=== PATIENT | male | born 1965 | race Caucasian/White ===

== ENCOUNTER 2023-11-07 13:19 | Emergency (ER) | payer OTHER, SELFPAY ==
[2023-11-07] VITALS (8 sets, daily range): BP systolic 135–179; BP diastolic 91–140; BMI 34.8
--- NOTE | 2023-11-07 14:12 | ED.GENMED ---
History of Present Illness
General
Chief Complaint: Blood Pressure Problem
Source: patient
Exam Limitations: none
Time Seen by Provider: 11/07/23 14:00
Nursing documentation reviewed up to this point in time: agreed with
Travel History
Have you had any contact with someone who has COVID-19?: No
Do you have any symptoms of coronavirus? Fever > 100 degrees, chills, cough, shortness of breath, sore throat, loss of taste or smell, muscle aches, or headache?: No
History of Present Illness
History of Present Illness:
Patient to ED for evaluation of elevated BP. He was seen by PCP today and told PB is running 180's/120. Takes Losartan/HCTz daily. He was previously placed on Metprolol 25mg to be taken as needed for elevated readings. States for the past
1.5months he has been taking it daily. Denies headache, dizziness, vision changes. Denies any CP/pressure, SOB. Reports intermittent facial flushing and sweating. Brought to ED by spouse for eval. H bipolar - prescribed Wellbutrin but states
he takes it for seasonal affect disorder, stopped med in September. Taking Testosterone weekly. He reports recent tooth extration. Took high dose IBU before and after procedure.
Past History
Past History
ED Past Medical History: GERD, HTN and Psychiatric (Bipolar )
ED Past Surgical History: Other (Hernia repair , tooth extraction)
Social History
Tobacco: Non-smoker
Alcohol: None
Drug: None
Personal:
Living: with family
Employment: Employed
Review of Systems
Review of Systems
Allergies reviewed?: Yes
All Other Systems: ROS reviewed and negative except as documented in HPI and ROS
Constitutional: Reports no symptoms
EENT: Reports no symptoms
Respiratory: Reports no symptoms
Cardiac: Reports other (Elevated BP)
ABD/GI: Reports no symptoms
: Reports no symptoms
Musculoskeletal: Reports no symptoms
Skin: Reports no symptoms
Neurological: Reports no symptoms
Psychiatric: Reports no symptoms
Phy Exam
General Physical Exam
General Presentation: well appearing and no apparent distress
General age: appears stated age
General Skin: warm and dry
General Habitus: normal
General Mental: alert
General Hydration: appears well hydrated
Cardiovascular Exam
Cardiovascular Exam: regular rate/rhythm and no edema
Pulmonary Exam
Pulmonary Exam: lungs clear, no respiratory distress and chest non tender
Gastrointestinal Exam
Gastrointestinal Exam: normal bowel sounds, non tender and soft
Musculoskeletal Exam
Musculoskeletal Exam: full ROM and neuro vasc intact
Skin Exam
Skin Exam: normal color, warm/dry and no rash
Psychiatric Exam
Psychiatric Exam: normal mood/affect
Course
Orders/Labs/Results
Orders:
Orders
11/07/23 14:14
Metoprolol [Lopressor] 5 mg IV NOW STA
11/07/23 15:09
Complete Blood Count/With Diff Urgent
Comprehensive Metabolic Panel Urgent
TSH Reflex To Free T4 Urgent
11/07/23 15:30
Electrocardiogram (*1) Urgent
Reason for Study: Hypertension, Benign
EKG- Treatment ONCE
11/07/23 15:40
Labetalol HCl [Trandate] 10 mg IV NOW STA
11/07/23 16:01
Urinalysis Urgent
Date Specimen was Collected: 11/07/23
Time Specimen was Collected: 15:58
Abnormal Lab Results
11/07/23
15:09
Monocytes % 9.4 H %
(1.7-9.3)
Carbon Dioxide 31 H mmol/L
(22-30)
11/07/23 15:09
11/07/23 15:09
Vital Signs
Initial and Last Documented VS:
Initial Vital Signs
Temp Pulse Resp BP Pulse Ox
98.9 F 81 16 167/122 97
11/07/23 13:24 11/07/23 13:24 11/07/23 13:24 11/07/23 13:24 11/07/23 13:24
Last Documented Vital Signs
Temp Pulse Resp BP Pulse Ox
98.9 F 71 15 135/91 96
11/07/23 13:24 11/07/23 17:15 11/07/23 17:15 11/07/23 17:15 11/07/23 17:15
*Pulse Oximetry
Patient hypoxic: no
*EKG
Interpretation: normal
Rate: normal
Rhythm: sinus
*Critical Care Note
Total Time (30-74mins, 75-104mins- exclusive of procedures): Not Applicable
Update Note
Update Note:
BP 130/91 after Labetolol 10mg IV. Patient is currently without complaints. WIll discharge home, follow up with his cardiololgist. Metprolol increased to 50mg bid
ED Attending Note
-
Portions of this chart may have been created with voice recognition software.� Occasional wrong word or��sound alike� substitutions may have occurred due to the inherent limitations of voice recognition software.
Discharge Plan
Departure
Patient Disposition: Home (Routine Discharge)
Date of Disposition: 11/07/23
Time of Disposition: 17:21
Patient with high blood pressure during this ER visit?: No
Condition: Good
Covid-19: Not Applicable
Discharge Problem:
Hypertension
Instructions: High Blood Pressure (DC)
Prescriptions:
New
metoprolol succinate [Toprol XL] 50 mg tablet extended release 24 hr
50 mg PO BID Qty: 60 0RF
bupropion HCl [Wellbutrin XL] 300 mg tablet extended release 24 hr
300 mg PO DAILY Qty: 30 0RF
Referrals:
Ambrose Hinojosa DO [Family Provider] -
Shashank Palacios MD [Active] - Call in 1-3 days for appt
Activity Restrictions/Additional Instructions:
Return to the emergency department immediately for any changes in/worsening of your symptoms
Interventions
Interventions:
*Risk Screen - Suicide Last Done: 11/07/23 13:24
*General Assessment Last Done: 11/07/23 13:24
*Neglect/Abuse Screening Last Done: 11/07/23 13:24
ED- Cardiac Assessment Last Done: 11/07/23 15:17
ED- Neurological Assessment Last Done: 11/07/23 15:17
ED- Pulmonary Assessment Last Done: 11/07/23 15:17
[2023-11-07] MEDS: LOPRESSOR 5 MG IV (15:13)
[2023-11-07 15:15] LABS: % Basophils 1.4 % (0-2); % Eosinophils 4.5 % (0-6); % Immature Granulocytes 0.2 % (0-0.5); % Monocytes 9.4 % (1.7-9.3); % Neutrophils 59.5 % (42.2-75.2); Absolute Basophils 0.1 10^3/uL (0-0.2); Absolute Eosinophils 0.3 10^3/uL (0-0.7); Absolute Lymphocytes 1.6 10^3/uL (1.2-3.4); Absolute Monocytes 0.6 10^3/uL (0.1-0.6); Absolute Neutrophils 3.9 10^3/uL (1.4-6.5); Hematocrit 47.7 % (39.0-52.0); Mean Corp Hgb Conc. 35.6 g/dL (33.0-37.0); Mean Corpuscular Hgb 30.4 pg (27.0-31.0); Mean Corpuscular Volume 85.3 fL (80.0-94.0); Mean Platelet Volume 8.4 fL (7.4-10.4); Nucleated Red Blood Cells % 0 % (-); Platelet Count 305 10^3/uL (130-400); Red Blood Cell Count 5.59 10^6/uL (4.70-6.10); Red Cell Dist. Width 12.7 % (11.5-14.5); White Blood Cell Count 6.5 10^3/uL (4.8-10.8)
[2023-11-07 15:33] LABS: ALT (SGPT) 28 U/L (0-50); AST (SGOT) 31 U/L (17-59); Albumin 4.2 g/dl (3.5-5.0); Alkaline Phosphatase 54 U/L (38-126); Blood Urea Nitrogen 15 mg/dl (9-20); Calcium 9.7 mg/dl (8.4-10.2); Carbon Dioxide 31 mmol/L (22-30); Chloride 98 mmol/L (98-107); Estimated Creatinine Clearance 91 ml/min; Glucose 88 mg/dl (70-99); Potassium 3.8 mmol/L (3.5-5.1); Sodium 137 mmol/L (135-145); Total Protein 7.5 g/dl (6.3-8.2); eGFR > 60.00
[2023-11-07 16:03] LABS: TSH Reflex To Free T4 1.78 uIU/ml (0.47-4.68)
[2023-11-07] MEDS: TRANDATE 10 MG IV (16:05)
[2023-11-07 16:39] LABS: Urine Albumin Negative (Neg - Trace); Urine Bilirubin Negative (Negative); Urine Character Clear (Clear); Urine Color Yellow; Urine Glucose Negative (Negative); Urine Ketone Negative (Negative); Urine Leukocyte Negative (Negative); Urine Nitrite Negative (Negative); Urine Occult Blood Negative (Negative); Urine Urobilinogen Negative (Neg - 1+)
== END 2023-11-07 17:50 | disposition home or self-care (01) ==
LOC: EMR 13:19
PROVIDERS: Nurse Practitioner; EMERGENCY PHYSICIAN Emergency Medicine; FAMILY PHYSICIAN Family Medicine
DX: I10 Essential (primary) hypertension (principal)
CPT/HCPCS: 99284; 96374; 96375; 80053; 81003; 84443; 85025; 93005